=== PATIENT | female | born 1995 | race Asian ===

== ENCOUNTER 2023-07-22 07:49 | Outpatient (CLI) | payer BC | END 2023-07-22 07:50 | disposition home or self-care (01) | LOC: CSHCT 07:49 | PROVIDERS: ATTEND Psychiatry & Neurology Neurology | DX: R56.9 Unspecified convulsions (principal); Z98.890 Other specified postprocedural states; G93.89 Other specified disorders of brain | CPT/HCPCS: 70450 ==